=== PATIENT | female | born 1945 | race Caucasian/White ===

== ENCOUNTER 2019-08-09 05:38 | Inpatient (IN) | payer OTHER, MEDICAID ==
[~2019-08-09] VITALS: Ht 165.1 cm; Wt 77.6 kg
[2019-08-09 06:33] LABS: Basophils # (auto) 0.1 uL; Basophils % (auto) 0.8 % (0.0-2.0); Eosinophils # (auto) 0.1 uL; Eosinophils % (auto) 0.8 % (0.0-7.0); Hematocrit 39.1 % (36.0-46.0); Hemoglobin 13.4 g/dL (12.2-16.2); Lymphocytes # (auto) 1.9 uL; Lymphocytes % (auto) 13.2 % (10.0-50.0); Mean Corpuscular Hemoglobin 29.8 pg (28.0-32.0); Mean Corpuscular Hgb Conc. 34.2 g/dL (32.0-36.0); Mean Corpuscular Volume 87.1 fL (80.0-100.0); Monocytes # (auto) 0.7 uL; Monocytes % (auto) 4.7 % (0.0-12.0); Neutrophils # (auto) 11.5 uL; Neutrophils % (auto) 80.5 % (37.0-80.0); Nucleated Red Blood Cells % 0.1 %; Platelet Count (auto) 277 10^3/uL (140-450); Red Blood Cells 4.48 10^6/uL (4.0-5.20); Red Cell Distribution Width 14.2 % (11.8-14.3); White Blood Cell 14.3 10^3/uL (4.4-10.8)
[2019-08-09 06:52] LABS: INR 0.95 (0.9-1.15); Partial Thromboplastin Time 25.1 sec (23.64-32.05)
[2019-08-09 06:54] LABS: Alanine Aminotransferase 17 U/L (13-56); Albumin 3.8 g/dL (3.4-5.0); Anion Gap 13 (5-15); Aspartate Aminotransferase 18 U/L (15-37); BUN/Creatinine Ratio 14.9; Blood Urea Nitrogen 17 mg/dL (7-18); Calcium 9.3 mg/dL (8.5-10.1); Carbon Dioxide 21 mmol/L (21-32); Chloride 105 mmol/L (98-107); GFR African American 60 mL/min; GFR Non-African American 50 mL/min; Glucose 259 mg/dL (74-106); Magnesium 1.8 mg/dL (1.6-2.6); Potassium 3.9 mmol/L (3.5-5.1); Sodium 139 mmol/L (136-145)
[2019-08-09 06:59] LABS: Alkaline Phosphatase 85 U/L (45-117); Bilirubin, Total 0.4 mg/dL (0.2-1.0)
[2019-08-09] MEDS ORDERED: SODIUM CHLORIDE 0.9% 1,000 ML IV ONE ×2 (08:05→11:00)
[2019-08-09] MEDS ORDERED: cefTRIAXone 1GM/50ML D5W 50 ML IV ONE (08:15)
[2019-08-09 09:13] LABS: Urine Bacteria FEW /hpf (None Seen); Urine Blood Negative /uL (Negative); Urine Hyaline Cast FEW /lpf (0 - 2); Urine Mucus FEW (None Seen); Urine Specific Gravity 1.016 (1.001-1.035); Urine WBC 2 /hpf (0 - 5)
[2019-08-09] MEDS ORDERED: IOHEXOL 350 MG/ML 100ML IJ ONE (09:57)
[2019-08-09] MEDS ORDERED: MORPHINE SULF INJ 2 MG/ML SYRINGE 1ML IV PRN (11:00)
[2019-08-09] MEDS ORDERED: DEXTROSE (50%) 50ML SYRG IV PRN (11:00)
[2019-08-09] MEDS ORDERED: NITROGLYCERIN 0.4 MG SL TAB SL PRN (11:00)
[2019-08-09] MEDS: ACCU-CHEK COMFORT CURVE STRIP VI SCH ×3 (11:50→22:33)
[2019-08-09] MEDS: InsuLIN REG 1unit/0.01ml Soln (100units/ml) SC SCH ×3 (11:55→22:33)
[2019-08-09] MEDS: PIPERACILLIN-TAZOB 3.375GM 100 ML IV SCH ×2 (12:13→18:06)
--- NOTE | 2019-08-09 16:30 | NUR ---
Telemetry admit from ER Patient admitted to Telemetry unit after SBAR received. Patient oriented to primary RN, unit, room, bed, and unit policies regarding patient care and visiting hours. Patient now on continuous telemetry monitoring, tele box #9 and telemetry reading on arrival to unit is SR in the 70's. Bed in lowest, locked position with side rails up x2. Fall precautions in place and call light within reach. All questions and concerns addressed, patient verbalized understanding.Will continue to monitor patient Q1hr/PRN.
[2019-08-09 17:00] VITALS: BP 101/56
[2019-08-09 17:28] VITALS: BP 101/56
[2019-08-09] MEDS ORDERED: METF-370 PO (18:12)
[2019-08-09] MEDS ORDERED: LEVO75TA6 PO (18:12)
[2019-08-09] MEDS ORDERED: DULA0.5I SC (18:12)
[2019-08-09] MEDS ORDERED: PNEUMOCOCCAL VACC POLYS 25 MCG/0.5 ML VIAL IM ONE (18:15)
--- NOTE | 2019-08-09 18:20 | NUR ---
US floor care technician at patient's bedside.
--- NOTE | 2019-08-09 19:40 | NUR ---
CLOSING NOTE Endorsed care of patient to NOC RNCandelario.
--- NOTE | 2019-08-09 20:00 | NUR ---
OPENING SHIFT NOTE: PATIENT RESTING IN BED. SHE HAS NO COMPLAINTS OF PAIN AT THE MOMENT OR SHORTNESS OF BREATH. SHE IS ON ROOM AIR. BED IS LOCKED IN LOWEST POSITION WITH SIDE RAILS UP X2. SHE HAS BEEN UPDATED ON HER PLAN OF CARE. CALL LIGHT IS WITHIN REACH. WILL CONTINUE TO MONITOR.
[2019-08-09 21:48] VITALS: BP 77/40
[2019-08-10] VITALS (8 sets, daily range): BP systolic 79–134; BP diastolic 45–70
[2019-08-10] MEDS: PIPERACILLIN-TAZOB 3.375GM 100 ML IV SCH ×2 (00:01→06:07)
--- NOTE | 2019-08-10 01:50 | NUR ---
PAGED HOSPITALIST FOR BLOOD PRESSURE OF 79/45 AND HR 61
[2019-08-10] MEDS ORDERED: SODIUM CHLORIDE 0.9% 500 ML IV ONE (02:45)
[2019-08-10 06:14] LABS: Basophils # (auto) 0.1 uL; Basophils % (auto) 0.6 % (0.0-2.0); Eosinophils # (auto) 0.2 uL; Eosinophils % (auto) 1.8 % (0.0-7.0); Hemoglobin 10.9 g/dL (12.2-16.2); Lymphocytes # (auto) 1.6 uL; Lymphocytes % (auto) 17.8 % (10.0-50.0); Mean Corpuscular Hemoglobin 31.3 pg (28.0-32.0); Mean Corpuscular Hgb Conc. 36.5 g/dL (32.0-36.0); Mean Corpuscular Volume 85.7 fL (80.0-100.0); Monocytes # (auto) 0.7 uL; Monocytes % (auto) 7.8 % (0.0-12.0); Neutrophils # (auto) 6.5 uL; Platelet Count (auto) 210 10^3/uL (140-450)
[2019-08-10] MEDS: ACCU-CHEK COMFORT CURVE STRIP VI SCH ×4 (06:29→21:42)
[2019-08-10] MEDS: InsuLIN REG 1unit/0.01ml Soln (100units/ml) SC SCH ×4 (06:29→21:42)
[2019-08-10 06:36] LABS: Potassium 3.9 mmol/L (3.5-5.1)
[2019-08-10 06:45] LABS: Albumin 2.9 g/dL (3.4-5.0); BUN/Creatinine Ratio 15.3; Bilirubin, Total 0.6 mg/dL (0.2-1.0); Calcium 8.5 mg/dL (8.5-10.1); Total Protein 6.3 g/dL (6.4-8.2)
--- NOTE | 2019-08-10 07:30 | NUR ---
Opening Shift Note Assumed care of patient, awake and alert. No S/S of distress/SOB or pain. Bed is in lowest position with 2x side rails up for safety and call light is within reach. Instructed on POC and to call for assist PRN, will continue to monitor for changes Q1hr and PRN.
[2019-08-10] MEDS: amLODIPine BESYLATE 5 MG TAB PO SCH (10:00)
[2019-08-10] MEDS ORDERED: ALBUTEROL SULF 2.5 MG/0.5ML(0.5%) NEB SOLN NEB PRN (11:30)
[2019-08-10] MEDS ORDERED: IPRATROPIUM BROM 0.5 MG/2.5ML INH SOL NEB PRN (11:30)
--- NOTE | 2019-08-10 12:20 | NUR ---
PAGED Informed patient of NPO status per Dr. Limon's order. Patient states the surgeon, Dr. Borrero, called and spoke to her and said surgery would be done tomorrow, 08/11/19, at 0700. Dr. Borrero paged to verify if/when patient needs to be NPO.
[2019-08-10] MEDS: LEVOFLOXACIN 500MG 100 ML IV SCH (12:25)
[2019-08-10] MEDS: SODIUM CHLORIDE 0.9% 1,000 ML IV SCH ×2 (12:25→21:41)
[2019-08-10] MEDS: metroNIDAZOLE 500MG/100ML 100 ML IV SCH ×2 (13:50→21:42)
--- NOTE | 2019-08-10 14:12 | NUR ---
NOTIFIED Per Dr. Borrero patient to be on clear liquid diet, NPO after midnight for scheduled surgery tomorrow 08/11/19.
--- NOTE | 2019-08-10 16:23 | NUR ---
ROUND Patient resting in bed, no S/S of distress noted. Will continue to monitor Q1hr/PRN.
--- NOTE | 2019-08-10 19:20 | NUR ---
CLOSING NOTE Endorsed care of patient to NOC RNCandelario.
--- NOTE | 2019-08-10 22:27 | NUR ---
Respiratory note: PT SEEN AND ASSESSED FOR PRN MED NEB TX AT 2227. TX IS NOT INDICATED AT THIS TIME. PT DISPLAYING NO SIGNS OF DISTRESS. SHE WAS ASLEEP WHEN ENTERING THE ROOM. HR 72 RR 16 95% ON ROOM AIR.
[2019-08-11 05:00] VITALS: BP 124/73
[2019-08-11] MEDS: metroNIDAZOLE 500MG/100ML 100 ML IV SCH ×3 (05:46→21:57)
[2019-08-11] MEDS: LEVOTHYROXINE SODIUM 25 MCG TAB PO SCH (06:29)
[2019-08-11] MEDS: InsuLIN REG 1unit/0.01ml Soln (100units/ml) SC SCH ×4 (06:29→22:00)
[2019-08-11] MEDS: ACCU-CHEK COMFORT CURVE STRIP VI SCH ×4 (06:30→22:10)
--- NOTE | 2019-08-11 06:55 | NUR ---
PATIENT TAKEN DOWN TO PRE OP FOR SURGERY.
[2019-08-11] MEDS ORDERED: SUCCINYLCHOLINE CHLORIDE 20 MG/ML 10ML VIAL IV ONE (07:00)
[2019-08-11] MEDS ORDERED: MEPERIDINE HCL (25 MG/ML) 1ML VIAL ONE (07:11)
[2019-08-11] MEDS ORDERED: SODIUM CHLORIDE LOCK 20 ML ONE (07:11)
[2019-08-11] MEDS ORDERED: MIDAZOLAM HCL 1MG/1ML-2 ML VIAL ONE (07:11)
[2019-08-11] MEDS ORDERED: ROCURONIUM 10MG/ML 10ML VIAL IV ONE (07:11)
[2019-08-11] MEDS ORDERED: ceFAZolin 1GM/50ML 50 ML IV ONE (07:11)
[2019-08-11] MEDS ORDERED: fentaNYL CITRATE 100 MCG/2 ML VL ONE (07:11)
[2019-08-11] MEDS ORDERED: ONDANSETRON HCL 4 MG/2 ML VIAL ONE (07:12)
[2019-08-11] MEDS ORDERED: PROPOFOL 10 MG/ML 20 ML IV ONE (07:12)
[2019-08-11] MEDS ORDERED: KETOROLAC TROMETH 60MG/2ML VIAL ONE ×2 (07:12→08:04)
[2019-08-11] MEDS ORDERED: KETOROLAC TROMETH 30 MG/ML 1ML VIAL IV ONE (07:30)
[2019-08-11] MEDS ORDERED: fentaNYL CITRATE 100 MCG/2 ML VL IV PRN (07:30)
[2019-08-11] MEDS ORDERED: METOCLOPRAMIDE HCL 5MG/ml INJ 2ml VIAL IV PRN (07:30)
[2019-08-11] MEDS ORDERED: HYDROmorphone HCL 2 MG/ML VL IV PRN (07:30)
[2019-08-11] MEDS ORDERED: ACCU-CHEK COMFORT CURVE STRIP VI ONE (07:30)
[2019-08-11] MEDS: SODIUM CHLORIDE 0.9% 1,000 ML IV SCH ×2 (07:30→17:33)
[2019-08-11] MEDS ORDERED: LIDOCAINE HCL 2% TOP JELLY 5ML TOP ONE (07:50)
[2019-08-11] MEDS ORDERED: LIDOCAINE 2% (LOCAL ANESTH.) PF 5ml SDV ONE (07:50)
[2019-08-11 08:00] VITALS: BP 140/64
[2019-08-11] MEDS ORDERED: NEOSTIGMINE 1 MG/ML INJ (10mg/10ML VIAL) ONE (08:04)
[2019-08-11] MEDS ORDERED: GLYCOPYRROLATE 0.2 MG/ML 1ML VIAL ONE (08:04)
--- NOTE | 2019-08-11 09:00 | NUR ---
UNABLE TO OBTAIN 0900 VITALS. PT IS NOT ON MST FLOOR AT THIS TIME .
--- NOTE | 2019-08-11 10:04 | NUR ---
PT BACK TO ROOM. S/P LAP GYPSY, THREE ABD DRESSING CLEAN/DRY/INTACT. PT IS DROWSY BUT AROUSABLE. VS: 97.0, 59, 140/64, 59, 98% ON 2L VIA N/C. WILL MONITOR CLOSELY.
[2019-08-11] MEDS: LEVOFLOXACIN 500MG 100 ML IV SCH (10:12)
[2019-08-11] MEDS: amLODIPine BESYLATE 5 MG TAB PO SCH (10:13)
--- NOTE | 2019-08-11 10:30 | NUR ---
PT RESTING IN BED WITH EYES CLOSED. JOVITA CHEST MOVEMENT WITH SPONTANEOUS RESPIRATION. VS: 97.5,80, 15, 98% ON 2l, 130/68, 0/10. WILL CONTINUE TO MONITOR.
--- NOTE | 2019-08-11 12:00 | NUR ---
PT AAOX4, C/O TO ABD, THREE SMALL DRESSING TO ABD INTACT, NO BLEEDING NOTED. ABD BINDER IN PLACED. DR ROSARIO MADE AWARE OF PT S/P LAP GYPSY C/O PAIN . AWAITING FOR RESPONSE.
--- NOTE | 2019-08-11 12:25 | NUR ---
PT IS EDUCATED ON THE IMPORTANT OF BREATHING EXERCISE AND HOW TO USE INCENTIVE SPIROMETRY. VERBALIZED UNDERSTANDING. WILL CONTINUE CARE.
--- NOTE | 2019-08-11 12:40 | NUR ---
OBTAINED NEW ORDERS FROM DR. ROSARIO: MORPHINE 2MG IV Q6 PRN FOR SEVERE PAIN, NORCO 5/325MG PO Q 6HR FOR MODERATE PAIN. ORDERS READ BACK AND VERIFIED, WILL CARRY OUT ORDER.
[2019-08-11] MEDS ORDERED: HYDROcodone-ACET 5/325MG TAB PO PRN (12:45)
[2019-08-11] MEDS ORDERED: MORPHINE SULF INJ 2 MG/ML SYRINGE 1ML IV PRN (12:45)
[2019-08-11 13:00] VITALS: BP 120/62
--- NOTE | 2019-08-11 14:27 | NUR ---
PT ASSESSED FOR MED NEB TX PT IS SLEEPING COMFORTABLY NO DISTRESS NOTED. PT ON RA. WILL CONTINUE TO MONITOR PT.
--- NOTE | 2019-08-11 14:43 | NUR ---
NUTRITION ASSESSMENT NOTES Please refer to link notes of nutrition screen form filed under the intervention section of the plan of care for further details. Est. Needs: 1550 kcal to 1950 kcal (20-25 kcal/kgBW), 62 gms to 77 gms pro (0.8-1.0 gms/kgBW). Will continue to monitor pertinent labs and reassess nutrient need prn Thank you. Addendum: 08/11/19 at [address] Amended: Links added.
--- NOTE | 2019-08-11 16:22 | NUR ---
assessment Patient has no post discharge needs identified. Addendum: 08/11/19 at 1623 by Deya SHARP Amended: Links added.
[2019-08-11 16:45] VITALS: BP 121/60
--- NOTE | 2019-08-11 18:00 | NUR ---
PT ABLE TO AMBULATE TO RESTROOM WITH STANDBY ASSISTANCE. PT REPORTED PASSING GAS, TOLERATED CLEAR LIQUID DIET WELL. DENIED OF PAIN NOR ANY DISCOMFORT AT THIS TIME. DRESSING TO ABD INTACT, NO BLEEDING NOTED. VS WNL. WILL CONTINUE TO MONITOR.
--- NOTE | 2019-08-11 19:05 | NUR ---
PRN MED NEB ASSESSMENT. NO DISTRESS NOTED. PT DENIES SOB AT THIS TIME. RA POX 94% HR 83 RR 18 BS ARE CLEAR AND DIMINISHED. TX NOT GIVEN.
--- NOTE | 2019-08-11 19:18 | NUR ---
CARE ENDORSED TO NOC SHIFT RN.
[2019-08-11 22:00] VITALS: BP 106/57
[2019-08-12] MEDS: SODIUM CHLORIDE 0.9% 1,000 ML IV SCH ×2 (03:25→13:45)
[2019-08-12 05:55] VITALS: BP 119/66
[2019-08-12] MEDS: metroNIDAZOLE 500MG/100ML 100 ML IV SCH ×2 (06:11→13:46)
[2019-08-12] MEDS: LEVOTHYROXINE SODIUM 25 MCG TAB PO SCH (06:13)
[2019-08-12] MEDS: InsuLIN REG 1unit/0.01ml Soln (100units/ml) SC SCH ×2 (06:21→11:30)
[2019-08-12] MEDS: ACCU-CHEK COMFORT CURVE STRIP VI SCH ×2 (06:22→12:09)
[2019-08-12 07:11] LABS: Basophils # (auto) 0 uL; Basophils % (auto) 0.6 % (0.0-2.0); Eosinophils # (auto) 0.1 uL; Eosinophils % (auto) 2.1 % (0.0-7.0); Hematocrit 29.9 % (36.0-46.0); Hemoglobin 10.3 g/dL (12.2-16.2); Lymphocytes # (auto) 1.1 uL; Lymphocytes % (auto) 14.6 % (10.0-50.0); Mean Corpuscular Hemoglobin 30.5 pg (28.0-32.0); Mean Corpuscular Hgb Conc. 34.4 g/dL (32.0-36.0); Mean Corpuscular Volume 88.7 fL (80.0-100.0); Monocytes # (auto) 0.6 uL; Monocytes % (auto) 8.8 % (0.0-12.0); Neutrophils # (auto) 5.3 uL; Neutrophils % (auto) 73.9 % (37.0-80.0); Platelet Count (auto) 228 10^3/uL (140-450); Red Blood Cells 3.37 10^6/uL (4.0-5.20); Red Cell Distribution Width 13.8 % (11.8-14.3); White Blood Cell 7.2 10^3/uL (4.4-10.8)
[2019-08-12 07:30] LABS: Calcium 8.3 mg/dL (8.5-10.1); Potassium 3.7 mmol/L (3.5-5.1)
[2019-08-12 07:33] LABS: BUN/Creatinine Ratio 12.9
--- NOTE | 2019-08-12 08:00 | NUR ---
Opening Shift Note Assumed care of patient, awake and alert. No S/S of distress/SOB, 4/10 abdominal pain-incision sites. Patient is S/P Lap Cholecystectomy 08/11/[address] Borrero. Abdominal binder reapplied. No active bleeding on the 3 small abdominal incision sites. Instructed on POC and to call for assist PRN, will continue to monitor for changes Q1hr and PRN.
--- NOTE | 2019-08-12 08:12 | NUR ---
Respiratory note: PRN MED NEB ASSESSMENT. NO RESP DISTRESS NOTED. PT DENIES SOB AT THIS TIME. RA POX 94% HR 85 RR 16, BS ARE CLEAR AND DIMINISHED. TX NOT GIVEN. PATIENT KNOWS TO HAVE RT PAGED IF TX IS NEEDED.
[2019-08-12 09:00] VITALS: BP 99/52
[2019-08-12] MEDS: LEVOFLOXACIN 500MG 100 ML IV SCH (09:29)
[2019-08-12] MEDS: amLODIPine BESYLATE 5 MG TAB PO SCH (09:33)
--- NOTE | 2019-08-12 09:34 | NUR ---
BP-99/52, held the dose of Amlodipine PO at this time.
[2019-08-12 13:00] VITALS: BP 115/61
--- NOTE | 2019-08-12 14:39 | NUR ---
Spoke with Dr. Borrero re: clearance prior to discharge. Orders received. Patient may be discharged from surgery standpoint and follow with him at the office in 10days.
--- NOTE | 2019-08-12 16:00 | NUR ---
Patient refused pneumococcal vaccine.
--- NOTE | 2019-08-12 16:06 | NUR ---
Spoke with Carolina at the surgery office ext. [phone]. Post op follow up appointment made with Dr. Borrero on 08/24/19 at 10:00am.
--- NOTE | 2019-08-12 16:09 | NUR ---
Discharge planning per consult, patient has orders to dc with home health. Referral faxed to [facility]. Placed a follow up call, spoke with F[facility], and was advised they will accept the patient, and start of care will be within 24-48 hours upon dc. Referral faxed to [facility] [place]. Addendum: 08/12/19 at 1617 by MORAIMA CHEN Amended: Links added.
[2019-08-12] MEDS ORDERED: LEVO500T21 PO (16:49)
[2019-08-12] MEDS ORDERED: HYDR-4833 PO (16:49)
[2019-08-12 17:00] VITALS: BP 122/63
[2019-08-12 17:50] VITALS: BP 115/61
--- NOTE | 2019-08-12 18:45 | NUR ---
Discharge instructions given as ordered. Encourage to follow up with surgery-Dr. Borrero on 08/24/19 at 1000am as instructed. Patient to reach out to [employer] to obtain PCP. All questions and concerns addressed. Patient verbalized understanding. Medication reconciliation form completed and copy given to patient. IV removed with catheter intact, pressure dressing applied. Telemetry unit returned to ICU. Patient taken to vehicle via wheelchair with all personal belongings, accompanied by staff and family member. No distress noted at time of departure.
== END 2019-08-12 18:45 | disposition home health service (06) | DRG 418 ==
LOC: ER 05:44 → TELE 05:45 → TELE-EAST 17:14
PROVIDERS: ADMIT Nurse Practitioner Acute Care; ATTEND Internal Medicine
PROC: 0FT44ZZ Resection of Gallbladder, Percutaneous Endoscopic Approach (ICD-10-PCS; principal; 2019-08-11 07:25)
DX: K80.00 Calculus of gallbladder with acute cholecystitis without obstruction (principal); N39.0 Urinary tract infection, site not specified; I10 Essential (primary) hypertension; K52.9 Noninfective gastroenteritis and colitis, unspecified; E11.9 Type 2 diabetes mellitus without complications; E03.9 Hypothyroidism, unspecified; K59.00 Constipation, unspecified; Z79.84 Long term (current) use of oral hypoglycemic drugs; Z87.440 Personal history of urinary (tract) infections; Z85.3 Personal history of malignant neoplasm of breast; Z82.49 Family history of ischemic heart disease and other diseases of the circulatory system; Z79.899 Other long term (current) drug therapy
CPT/HCPCS: 36415; 71046; 71260; 74177; 76705; 80048; 80053; 80061; 81001; 82247; 82962; 83036; 83690; 83735; 83880; 84484; 85025; 85610; 85730; 86850; 86900; 86901; 87040; 87086; 93005; 96361; 96365; 96372; 99291; G0378; J0330; J0690; J0696; J1815; J1885; J1956; J2001; J2250; J2405; J2543; J2704; J3490